=== PATIENT | male | born 1955 | race Caucasian/White ===

== ENCOUNTER → 2016-11-15 | Outpatient (CLI) | payer BC | END | disposition home or self-care (01) | LOC: GMAJ 14:26 | PROVIDERS: ATTEND Family Medicine | DX: Z12.5 Encounter for screening for malignant neoplasm of prostate (principal) ==

== ENCOUNTER → 2017-05-17 | Outpatient (CLI) | payer BC | END | disposition home or self-care (01) | LOC: GMAJ 15:09 | PROVIDERS: ATTEND Family Medicine | DX: Z00.00 Encounter for general adult medical examination without abnormal findings (principal) ==

== ENCOUNTER → 2017-11-13 | Outpatient (CLI) | payer BC | LOC: GMAJ 12:36 | PROVIDERS: ATTEND Family Medicine | DX: M17.0 Bilateral primary osteoarthritis of knee (principal); I10 Essential (primary) hypertension ==

== ENCOUNTER → 2018-05-09 | Outpatient (CLI) | payer BC ==
--- NOTE | 2018-05-09 15:15 | US ---
EXAM DESCRIPTION: Abdomen,Complete CLINICAL HISTORY: ABNORMAL RESULTS OF LIVER FUNCTION STUDIES COMPARISON: None Available. TECHNIQUE: Complete abdominal ultrasound FINDINGS: Visualized portions of the pancreas are unremarkable. No peripancreatic fluid. Bowel gas obscures some areas. Normal caliber of the aorta. Normal appearance of the inferior vena cava. Liver parenchyma is hyperechoic consistent with diffuse hepatic steatosis. The liver is enlarged measuring 21 cm in craniocaudal length. No liver mass or intrahepatic bile duct dilatation. No liver surface irregularity. Normal appearance of hepatic veins and portal vein. Gallbladder appears normal in size with multiple intraluminal shadowing stones. No wall thickening. Sonographic Daniels sign is reported as negative. Common bile duct is normal in caliber measuring 3.9 mm. The right kidney measures 11.4 cm in length. Normal renal cortical echogenicity. The renal cortical thickness appears decreased at the lower pole. No right renal mass or shadowing stone. Small cyst at the lower pole of the right kidney measures 1.7 cm. There is no hydronephrosis. Spleen is normal in size. No focal splenic lesion. The left kidney measures 11.2 cm in length. Normal renal cortical echogenicity. The renal cortical thickness appears normal. No left renal mass, shadowing stone or cyst. There is no hydronephrosis. IMPRESSION: Enlarged liver with diffuse hepatic steatosis. Gallstones without other changes to suggest acute cholecystitis. Electronically signed by: Reg Granda MD 05/09/2018 3:14 PM CDT
== END ==
LOC: GMAJ 10:25
PROVIDERS: ATTEND Family Medicine
DX: Z00.00 Encounter for general adult medical examination without abnormal findings (principal); R94.5 Abnormal results of liver function studies; K76.0 Fatty (change of) liver, not elsewhere classified; K80.20 Calculus of gallbladder without cholecystitis without obstruction

== ENCOUNTER 2018-06-03 05:35 | Day surgery (SDC) | payer BC ==
--- NOTE | 2018-05-30 09:00 | RAD ---
EXAM DESCRIPTION: Chest,2 Views CLINICAL HISTORY: z01.811 preop COMPARISON: None available FINDINGS: Frontal and lateral views of the chest. Cardiac silhouette and pulmonary vascularity are within normal limits. Minimal opacities in the bilateral lung bases most likely representing subsegmental atelectasis. Otherwise, there is no focal consolidative pulmonary infiltrates. Costophrenic angles are sharp. No pneumothorax. Degenerative changes of the thoracic spine. IMPRESSION: Minimal subsegmental atelectasis in the bilateral lung bases. Otherwise, lungs are clear without focal consolidative infiltrates. Electronically signed by: Ramez Swartz MD 05/30/2018 8:59 AM CDT
[2018-06-03] MEDS ORDERED: SODIUM CHL 0.9% 100ML MINI-BAG 100 ML IVPB ONE (06:32)
[2018-06-03] MEDS ORDERED: LACTATED RINGERS 1,000 ML ONE (06:32)
[2018-06-03] MEDS ORDERED: ceFAZolin SODIUM 1 GM VIAL ONE (06:33)
[2018-06-03] MEDS ORDERED: HEPARIN SODIUM (PORCINE) 10,000 UNITS/ML VIAL ONE (07:38)
[2018-06-03] MEDS ORDERED: BUPIVACAINE 0.25% W/EPI 50 ML VIAL INJ ONE (07:38)
[2018-06-03] MEDS ORDERED: ACETAMINOPHEN IV 1000MG 100 ML ONE (08:17)
[2018-06-03] MEDS ORDERED: fentaNYL CITRATE INJ 50 MCG/ML AMP ONE (08:17)
[2018-06-03] MEDS ORDERED: MIDAZOLAM INJ 2 MG/2 ML VIAL ONE (08:17)
[2018-06-03] MEDS ORDERED: ROCURONIUM BROMIDE 10 MG/ML VIAL ONE ×2 (08:18→10:48)
[2018-06-03] MEDS ORDERED: ELECTROLYTE-A 1,000 ML IVS ONE (09:56)
[2018-06-03] MEDS ORDERED: PROPOFOL 200 MG/20 ML VIAL IV ONE (10:00)
[2018-06-03] MEDS ORDERED: METOCLOPRAMIDE HCL INJ 10 MG/2 ML VIAL IV ONE (10:00)
[2018-06-03] MEDS ORDERED: LIDOCAINE 1% 10 ML VIAL INJ ONE (10:00)
[2018-06-03] MEDS ORDERED: KETOROLAC TROMETHAMINE INJ 30 MG/ML VIAL IV ONE (10:00)
[2018-06-03] MEDS ORDERED: DEXAMETHASONE INJ 10 MG/ML VIAL IV ONE (10:00)
[2018-06-03] MEDS ORDERED: raNITIdine HCL INJ 25 MG/ML VIAL IV ONE (10:00)
[2018-06-03] MEDS ORDERED: ePHEDrine SULF 50 MG/ML IV ONE (10:00)
[2018-06-03] MEDS ORDERED: PHENYLEPHRINE INJ 1ML 10 MG/ML VIAL IV ONE (10:00)
[2018-06-03] MEDS ORDERED: SUGAMMADEX SODIUM 200 MG/2 ML VIAL IV ONE (10:48)
--- NOTE | 2018-06-03 13:33 | OP ---
DATE OF PROCEDURE: 06/03/18 PREOPERATIVE DIAGNOSIS: 1. Symptomatic cholelithiasis. 2. Elevated liver function tests. 3. Fatty infiltration of the liver. 4. Diabetes mellitus, type 2. POSTOPERATIVE DIAGNOSIS: 1. Symptomatic cholelithiasis. 2. Elevated liver function tests. 3. Fatty infiltration of the liver. 4. Diabetes mellitus, type 2. 5. Chronic cholecystitis. PROCEDURE: 1. Laparoscopic cholecystectomy with intraoperative cholangiography using fluoroscopy. 2. Wedge biopsy, right lobe of the liver. SURGEON: Shemar Elise MD. MOTORCYCLE ASSEMBLER: None. ANESTHESIA: Local infiltration of 0.25% Marcaine with epinephrine and general endotracheal anesthesia. INDICATION: The patient is a 62-year-old male who was seen with some epigastric discomfort. Liver function tests were noted to be abnormal, so he underwent an ultrasound examination which revealed cholelithiasis with normal ducts, no pericholecystic fluid, but changes in the liver consistent with fatty infiltration. The patient was brought to the Surgical Suite today for cholecystectomy with cholangiography and wedge biopsy of the liver after the risks, benefits and alternatives to the procedure were discussed and accepted. FINDINGS: The gallbladder was distended and quite large. There were multiple stones. Intraoperative cholangiography revealed free flow into the duodenum with no filling defects or strictures noted. The liver did appear to have fatty infiltration of the liver, but no changes consistent with cirrhosis grossly. Pathology is pending. DESCRIPTION OF PROCEDURE: After adequate general endotracheal anesthesia was obtained, the patient was prepped and draped in the usual sterile manner. Surgical time-out was taken. The supraumbilical area was infiltrated with local anesthesia. A vertical incision was made. Dissection was carried down through the skin and subcutaneous tissue to the midline fascia. Traction sutures were placed on either side of the midline. A small incision was made in the midline fascia and the peritoneum was opened bluntly. Americo trocar was introduced under direct vision into the abdominal cavity and fixed in place with the 20 mL balloon. CO2 was then insufflated until a pressure of 12 mmHg was reached and the abdomen was tympanitic in all four quadrants. When this was done, the laparoscope was introduced. The abdomen was inspected. The patient was then placed in reverse Trendelenburg position, turned to the left side. The upper abdominal ports were placed under direct vision. The gallbladder was grasped, retracted superiorly and adhesions to the neck of the gallbladder were taken down using blunt dissection. The neck of the gallbladder was retracted laterally. The triangle of Calot was then explored with the cystic duct identified and isolated anteriorly. The cystic duct was hemoclipped once proximally. A small incision was made in the cystic duct. The cholangiogram catheter was introduced through a separate stab wound in the right upper quadrant, introduced into the cystic duct and clipped in place. Cholangiograms were then taken using fluoroscopy which revealed free flow into the duodenum with no filling defects or strictures noted. When this was done, the cystic duct catheter was removed. The cystic duct was hemoclipped three times distally and divided between the hemoclips. The cystic artery was then clipped twice proximally and once distally and divided. At this point, the gallbladder was then dissected free from the gallbladder bed of the liver using electrocautery. When this was done, the gallbladder was placed in an EndoCatch bag and removed from the supraumbilical port site in the usual manner under direct vision. At this point, the gallbladder bed of the liver was inspected. Adequate hemostasis was noted. At this point, a wedge biopsy of the right lobe of the liver medial to the gallbladder fossa was done with sharp scissors. The specimen was removed for pathological evaluation. Hemostasis was then obtained using electrocautery turned up to 50. When hemostasis was noted to be adequate , the subhepatic space and subphrenic space were irrigated copiously with saline. The soheila hepatis, gallbladder bed of the liver and the biopsy site were all inspected and adequate hemostasis was noted. At this point, the CO2, the laparoscope and the supraumbilical port were removed under direct vision. Hemostasis was noted to be adequate. The supraumbilical port site fascia was approximated with two [id number] sutures of 0 PDS. Subcutaneous tissue was irrigated with saline. Skin edges were approximated with 4-0 Vicryl subcuticular sutures, benzoin and Steri-Strips. Sterile dressings were applied. The patient was awakened and taken to the Recovery Room in good and stable condition. Estimated blood loss was less than 75 mL. All sponge, needle and instrument counts were correct. #[id number] [facility]
[2018-06-03 14:26] VITALS: BP 98/68; TEMP 96; O2SAT 97
== END 2018-06-03 13:05 | disposition home or self-care (01) ==
LOC: AMB 05:35
PROVIDERS: ATTEND Surgery
DX: K80.10 Calculus of gallbladder with chronic cholecystitis without obstruction (principal); K76.0 Fatty (change of) liver, not elsewhere classified; I10 Essential (primary) hypertension; E11.9 Type 2 diabetes mellitus without complications; E66.9 Obesity, unspecified; E78.2 Mixed hyperlipidemia; Z68.34 Body mass index [BMI] 34.0-34.9, adult; Z87.891 Personal history of nicotine dependence; Z79.84 Long term (current) use of oral hypoglycemic drugs; Z79.899 Other long term (current) drug therapy
CPT/HCPCS: 00790; 36415; 36416; 47001; 47563; 71046; 76000; 80053; 81001; 82948; 85025; 93005; J0690; J1100; J1644; J1885; J2250; J2765; J2780; J3010; J3490; J7050; J7120

== ENCOUNTER → 2018-11-05 | Outpatient (CLI) | payer BC | LOC: GMAJ 12:43 | PROVIDERS: ATTEND Family Medicine | DX: Z12.5 Encounter for screening for malignant neoplasm of prostate (principal) ==

== ENCOUNTER → 2019-11-21 | Outpatient (CLI) | payer BC | DX: M16.0 Bilateral primary osteoarthritis of hip (principal); M25.862 Other specified joint disorders, left knee ==

== ENCOUNTER → 2020-03-08 | Outpatient (CLI) | payer BC | LOC: LAB.O 13:04 | PROVIDERS: ATTEND Orthopaedic Surgery | DX: Z01.818 Encounter for other preprocedural examination (principal) ==

== ENCOUNTER → 2020-03-15 | Outpatient (CLI) | payer BC | LOC: GMAJ 14:04 | PROVIDERS: ATTEND Family Medicine | DX: R94.5 Abnormal results of liver function studies (principal) ==

== ENCOUNTER → 2020-03-23 | Outpatient (CLI) | payer BC ==
--- NOTE | 2020-03-23 11:19 | US ---
EXAM DESCRIPTION: Abdomen,Complete: Ultrasound. CLINICAL HISTORY: 64 years MaleABNORMAL RESULTS OF LIVER FUNCTION STUDIES COMPARISON: None Available. TECHNIQUE: Transabdominal scanning: grayscale and Doppler modes. Technically difficult study due to patient body habitus. FINDINGS: Gallbladder: Surgically removed. No fluid in the gallbladder fossa. Non-tender with transducer pressure. Common bile duct: caliber 5.4 mm within normal limits. Liver: Increased echogenicity and dense; difficulty in visualizing the posterior liver and soft tissues posterior to the liver. Contour liver capsule smooth where seen. No fluid around the liver. Intrahepatic biliary ducts normal caliber. Doppler hepatopedal flow and normal caliber portal vein. 8mm caliber at the soheila hepatis.. Long axis right lobe 19.0 cm. Pancreas: normal size and echogenicity. Duct not seen. abdominal aorta: Normal caliber from the proximal segment to the distal bifurcation.. IVC: visualized and normal caliber. Right kidney: long axis measures 11.2 cm. Normal cortical Echogenicity. Normal cortical thickness. Decreased color Doppler vascularity; no echogenic calcifications or hydronephrosis. Left kidney: long axis measures 9.7 cm. Normal cortical Echogenicity. Normal cortical thickness. Normal vascularity; no echogenic stones or hydronephrosis. Spleen: Normal. No focal lesions.. Long axis is 10.1 cm.. Other: None. IMPRESSION: 1. Mild to moderate hepatomegaly and steatosis of the liver. Limited visualization of the posterior liver and soft tissues posterior to the liver. Physiologic vascularity. The remainder of the study is unremarkable. No ascites. Pancreas is negative. 2. Previous cholecystectomy with physiologic caliber of the common bile duct. No fluid or tenderness. 3. Bilateral kidneys unremarkable except for decreased color Doppler vascularity on the right. Spleen is unremarkable. Normal caliber of the abdominal aorta and IVC. Electronically signed by: Bobo Ch MD 03/23/2020 11:18 AM CDT
== END ==
LOC: US 09:00
PROVIDERS: ATTEND Family Medicine
DX: R16.0 Hepatomegaly, not elsewhere classified (principal); K76.0 Fatty (change of) liver, not elsewhere classified; N28.9 Disorder of kidney and ureter, unspecified; Z90.49 Acquired absence of other specified parts of digestive tract

== ENCOUNTER → 2020-04-13 | Outpatient (CLI) | payer BC | LOC: LAB.O 10:38 | PROVIDERS: ATTEND Orthopaedic Surgery | DX: Z01.818 Encounter for other preprocedural examination (principal) ==

== ENCOUNTER → 2020-05-19 | Outpatient (CLI) | payer BC | LOC: LAB.O 10:30 | PROVIDERS: ATTEND Internal Medicine Gastroenterology | DX: R94.5 Abnormal results of liver function studies (principal); K76.0 Fatty (change of) liver, not elsewhere classified ==

== ENCOUNTER 2020-07-21 05:30 | Day surgery (SDC) | payer BC ==
[2020-07-21] MEDS ORDERED: SODIUM CHLORIDE 0.9% 1000ML 1,000 ML ONE (06:52)
[2020-07-21] MEDS ORDERED: LIDOCAINE 1% 10 ML VIAL INJ ONE (07:00)
[2020-07-21] MEDS ORDERED: PROPOFOL 200 MG/20 ML VIAL IV ONE (07:00)
--- NOTE | 2020-07-21 08:58 | OP ---
DATE OF PROCEDURE: 07/21/20 PREOPERATIVE DIAGNOSIS: 1. Average risk colorectal screening. POSTOPERATIVE DIAGNOSIS: 1. Colon polyps. 2. Colonic diverticulosis. 3. Internal hemorrhoids. PROCEDURE: 1. Colonoscopy with polypectomy. SURGEON: Darrell Gong MD ANESTHESIA: Monitored anesthesia care. ESTIMATED BLOOD LOSS: Less than 5 mL. COMPLICATIONS: None. PROCEDURE: The patient was placed in the left lateral decubitus position. A time-out was performed. After deep sedation was achieved, a digital rectal exam was performed and noted to be unremarkable. The Olympus adult colonoscope was inserted through the anus, into the rectum and advanced to the cecum under direct visualization without difficulty. The cecum was identified by the ileocecal valve and the appendiceal orifice. Photodocumentation of these locations was performed. The patients bowel preparation was fair. The endoscope was then progressively withdrawn and the total colonic lumen evaluated. Retroflexion was performed in the rectum. The endoscope was then withdrawn and the procedure terminated. The patient tolerated the procedure well with no immediate complications. FINDINGS: 1. Two sessile polyps were found in the ascending colon, measuring 3 to 6 mm in size. These polyps were successfully removed with a cold snare and retrieved for pathology. 2. One sessile polyp was found in the descending colon, measuring 5 mm. This polyp was removed with a cold snare and retrieved for pathology. 3. Moderate to severe colonic diverticulosis was found in the sigmoid and descending colon, there was no evidence of diverticulitis or bleeding. 4. Grade 2 non-bleeding internal hemorrhoids were seen upon retroflexion in the rectum. IMPRESSION: 1. Colonic polyps, removed as above. 2. Colonic diverticulosis. 3. Internal hemorrhoids. RECOMMENDATIONS: 1. Okay to discharge home once the patient meets discharge criteria. 2. Resume prior diet. 3. Resume home medications. 4. Await pathology results. 5. Repeat colonoscopy for surveillance in 3 years given polyps seen today and fair bowel preparation. 6. Followup in the GI clinic with Dr. Gong in [place] in 1 to 2 months. #[id number] [facility]
[2020-07-21 09:26] VITALS: BP 158/96; TEMP 98.3; O2SAT 98
== END 2020-07-21 09:08 | disposition home or self-care (01) ==
LOC: AMB 05:30
PROVIDERS: ATTEND Internal Medicine Gastroenterology
DX: Z12.11 Encounter for screening for malignant neoplasm of colon (principal); D12.2 Benign neoplasm of ascending colon; D12.4 Benign neoplasm of descending colon; K57.30 Diverticulosis of large intestine without perforation or abscess without bleeding; K64.1 Second degree hemorrhoids; I10 Essential (primary) hypertension; E11.9 Type 2 diabetes mellitus without complications; J44.9 Chronic obstructive pulmonary disease, unspecified; K76.0 Fatty (change of) liver, not elsewhere classified; E66.9 Obesity, unspecified; Z68.33 Body mass index [BMI] 33.0-33.9, adult; Z79.84 Long term (current) use of oral hypoglycemic drugs; Z79.899 Other long term (current) drug therapy
CPT/HCPCS: 00812; 36416; 45380; 82948; J3490; J7030